=== PATIENT | female | born 1995 | race American Indian/Alaskan Native ===

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

== ENCOUNTER 2017-03-06 11:59 | Emergency (ER) | payer SELFPAY ==
[2017-03-06 13:03] VITALS: BP 152/83
--- NOTE | 2017-03-06 13:49 | Emergency Department Report ---
ED ENT HPI - General Chief complaint: Earache Stated complaint: BLEEDING FROM EARS Time Seen by Provider: 03/06/17 13:48 Source: patient, RN notes reviewed Mode of arrival: Ambulatory Limitations: No Limitations - History of Present Illness Initial comments: This is a 21-year-old female who was previously unknown to this provider. The patient does not have a primary care doctor that she is aware. She reports a past medical history of asthma. The patient presents to the ER with a complaint of bilateral ear pain and discharge, and right-sided ear canal bleeding. There is no tinnitus. There is no vertigo. There is no trauma. There is no recent submersion. No other complaints. Symptoms are constant. They do not have exacerbating or relieving factors. MD complaint: ear pain, other -: Gradual Location: R ear, L ear Severity: mild Consistency: constant Improves with: none Worsens with: none Associated Symptoms: discharge from ear. denies: fever, cough, gum swelling, toothache, pain with swallowing, sore throat, tinnitus, hearing loss, rhinorrhea - Related Data Previous Rx's Medication Instructions Recorded Last Taken Type Cipro/Dexameth 0.3/0.1% [Ciprodex 4 drops OT BID #1 bottle 03/06/17 Unknown Rx OTIC] Allergies Allergy/AdvReac Type Severity Reaction Status Date / Time No Known Allergies Allergy Verified 03/06/17 12:57 ED Dental HPI - General Chief complaint: Earache Stated complaint: BLEEDING FROM EARS Time Seen by Provider: 03/06/17 13:48 Source: patient Mode of arrival: Ambulatory Limitations: No Limitations - Related Data Previous Rx's Medication Instructions Recorded Last Taken Type Cipro/Dexameth 0.3/0.1% [Ciprodex 4 drops OT BID #1 bottle 03/06/17 Unknown Rx OTIC] Allergies Allergy/AdvReac Type Severity Reaction Status Date / Time No Known Allergies Allergy Verified 03/06/17 12:57 ED Review of Systems ROS: Stated complaint: BLEEDING FROM EARS Other details as noted in HPI Constitutional: denies: fever ENT: ear pain. denies: epistaxis Respiratory: denies: cough Cardiovascular: denies: chest pain Gastrointestinal: denies: abdominal pain Skin: denies: rash Neurological: denies: headache ED Past Medical Hx - Past Medical History Previous Medical History?: No - Surgical History Past Surgical History?: No - Social History Smoking Status: Never Smoker Substance Use Type: None - Medications Home Medications: Home Medications Medication Instructions Recorded Confirmed Last Taken Type Cipro/Dexameth 0.3/0.1% [Ciprodex 4 drops OT BID #1 bottle 03/06/17 Unknown Rx OTIC] ED Physical Exam - General Limitations: No Limitations General appearance: alert, in no apparent distress - Head Head exam: Present: atraumatic, normocephalic - Eye Eye exam: Present: normal appearance, PERRL, EOMI. Absent: nystagmus - ENT ENT exam: Present: normal orophraynx, mucous membranes moist, TM's normal bilaterally, other (there is maceration noted in the bilateral external auditory canals. Tympanic membrane is intact bilaterally. Discharge is noted in the right external auditory canal.) - Neck Neck exam: Present: normal inspection, full ROM - Respiratory Respiratory exam: Present: normal lung sounds bilaterally. Absent: respiratory distress, chest wall tenderness - Cardiovascular Cardiovascular Exam: Present: regular rate, normal rhythm, normal heart sounds. Absent: systolic murmur, diastolic murmur, rubs, gallop - GI/Abdominal GI/Abdominal exam: Present: soft, normal bowel sounds. Absent: distended, tenderness, guarding, rebound, rigid, pulsatile mass - Extremities Exam Extremities exam: Present: normal inspection, full ROM. Absent: calf tenderness - Back Exam Back exam: Present: normal inspection, full ROM. Absent: paraspinal tenderness - Neurological Exam Neurological exam: Present: alert, oriented X3, normal gait, other (Extraocular movements intact. Tongue midline. No facial droop. Facial sensation intact to light touch in the V1, V2, V3 distribution bilaterally. 5 and 5 strength in 4 extremities.. Sensation is intact to light touch in 4 extremities.). Absent : motor sensory deficit - Psychiatric Psychiatric exam: Present: normal affect, normal mood - Skin Skin exam: Present: warm, dry, intact, normal color. Absent: rash ED Course Vital Signs 03/06/17 12:57 Temperature 98.1 F Pulse Rate 71 Respiratory 16 Rate Blood Pressure 152/83 O2 Sat by Pulse 99 Oximetry ED Medical Decision Making - Lab Data Vital Signs 03/06/17 12:57 Temperature 98.1 F Pulse Rate 71 Respiratory 16 Rate Blood Pressure 152/83 O2 Sat by Pulse 99 Oximetry Labs 03/06/17 13:52 Urine HCG, Qual Negative - Medical Decision Making Differential diagnosis, including but not limited to: Otitis externa Assessment and plan: 21-year-old female with bilateral macerated external auditory canals, intact tympanic membranes, most likely with otitis externa. She is afebrile, with reassuring vital signs, with the exception of hypertension. Patient was started on ciprofloxacin otic preparation. She will be discharged at this time. Return precautions are reviewed. Critical care attestation.: If time is entered above; I have spent that time in minutes in the direct care of this critically ill patient, excluding procedure time. ED Disposition Clinical Impression: Otitis externa Disposition: DC- TO HOME OR SELFCARE Is pt being admited?: No Does the pt Need Aspirin: No Condition: Stable Instructions: Otitis Externa (ED) Additional Instructions: Take the medication as directed. Do not submerge the head underneath water. Follow up with the primary care doctor or road cleaner within the next 10- 14 days. Take Tylenol every 4 hours, alternating with ibuprofen every 6 hours as needed for pain. Do not cleaning out use with Q-tips. When pain and discharge have resolved, use only mineral oil or peroxide. Return to the ER right away with fevers, chills, chest pain, shortness of breath, intractable nausea or vomiting, confusion, inability to tolerate liquid feeds, new, worsening or different symptoms. Please note that blood pressure was elevated. This should be followed up by her primary care doctor within the next month. Long-term complications of hypertension and elevated blood pressure includes stroke, heart attack, disability, , paralysis, loss of quality of life. Laboratory studies indicate the patient is not . Prescriptions: Cipro/Dexameth 0.3/0.1% [Ciprodex OTIC] 4 drops OT BID #1 bottle Referrals: PRIMARY CARE, [Primary Care Provider] - 3-5 Days RUTH PRATER MD [Staff Physician] - 3-5 Days CHIVO CONDE MD [Staff Physician] - 3-5 Days
== END 2017-03-06 14:27 | disposition home or self-care (01) ==
LOC: ED 11:59
DX: H60.93 Unspecified otitis externa, bilateral (principal)
CPT/HCPCS: 81025; 99283